=== PATIENT | male | born 1970 | race Caucasian/White ===

== ENCOUNTER 2023-06-18 20:12 | Emergency (ER) | payer OTHER, SELFPAY ==
[2023-06-18 20:16] VITALS: BP 134/82
[2023-06-18 20:30] LABS: % Basophils 0.2 % (0-2); % Eosinophils 1.3 % (0-6); % Immature Granulocytes 0.1 % (0-0.5); % Lymphocytes 21.9 % (20.5-51.1); % Monocytes 8.2 % (1.7-9.3); % Neutrophils 68.3 % (42.2-75.2); Absolute Eosinophils 0.1 10^3/uL (0-0.7); Absolute Lymphocytes 1.9 10^3/uL (1.2-3.4); Absolute Monocytes 0.7 10^3/uL (0.1-0.6); Absolute Neutrophils 5.8 10^3/uL (1.4-6.5); Hematocrit 38.8 % (39.0-52.0); Hemoglobin 13.5 g/dL (13.0-18.0); Mean Corp Hgb Conc. 34.8 g/dL (33.0-37.0); Mean Corpuscular Hgb 30.5 pg (27.0-31.0); Mean Corpuscular Volume 87.8 fL (80.0-94.0); Mean Platelet Volume 10.1 fL (7.4-10.4); Nucleated Red Blood Cells % 0 % (-); Platelet Count 183 10^3/uL (130-400); Red Blood Cell Count 4.42 10^6/uL (4.70-6.10); Red Cell Dist. Width 12.1 % (11.5-14.5); White Blood Cell Count 8.5 10^3/uL (4.8-10.8)
[2023-06-18 20:46] LABS: COVID-19 Antigen Negative (Negative)
[2023-06-18 20:48] LABS: ALT (SGPT) 19 U/L (0-50); AST (SGOT) 32 U/L (17-59); Albumin 4.6 g/dl (3.5-5.0); Alkaline Phosphatase 57 U/L (38-126); Blood Urea Nitrogen 14 mg/dl (9-20); Calcium 9.6 mg/dl (8.4-10.2); Carbon Dioxide 26 mmol/L (22-30); Chloride 105 mmol/L (98-107); Glucose 99 mg/dl (70-99); Potassium 3.9 mmol/L (3.5-5.1); Sodium 139 mmol/L (135-145); Total Bilirubin 0.6 mg/dl (0.2-1.3); Total Protein 7.8 g/dl (6.3-8.2); eGFR > 60.00
[2023-06-18 20:56] LABS: Troponin I < 0.012 ng/ml
--- NOTE | 2023-06-19 00:33 | ED.GENMED ---
History of Present Illness
General
Chief Complaint: Cold/Flu/URI Symptoms
Source: patient
Time Seen by Provider: 06/19/23 00:26
Travel History
Have you had any contact with someone who has COVID-19?: No
Do you have any symptoms of coronavirus? Fever > 100 degrees, chills, cough, shortness of breath, sore throat, loss of taste or smell, muscle aches, or headache?: No
History of Present Illness
History of Present Illness:
52-year-old male with past medical history of hyperlipidemia presenting to the emergency department for evaluation of sore throat, cough, sinus congestion, body aches, chills, lower back pain and chest discomfort. Patient states the chest
discomfort bothers him the most which is why he came to the ER for further evaluation. Patient denies any known fevers. No known sick contacts, recent travel or recent antibiotics. No other concerns at this time.
Past History
Past History
ED Past Medical History: Hypercholesterolemia
ED Past Surgical History: Other
Social History
Tobacco: Non-smoker
Alcohol: Occasional
Drug: None
Personal:
Living: with family
Review of Systems
Review of Systems
All Other Systems: ROS reviewed and negative except as documented in HPI and ROS
Phy Exam
Physical Exam
Physical Exam:
GENERAL: Alert , in no apparent distress
EYE: conjunctiva clear
NECK: Supple, no significant adenopathy.
ENT: o/p clr, mmm. No tonsillar edema or exudates, uvula midline and airway is patent
CARDIAC: Regular rate and rhythm
LUNGS: Clear breath sounds bilaterally, no acute respiratory distress, no wheezes/rales/rhonchi
NEUROLOGICAL: Alert and oriented
SKIN: Warm and dry, skin intact.
MUSCULOSKELETAL: well perfused.
PSYCH: Normal and appropriate interaction.
Scores
Heart Failure Risk
Heart Failure Risk Score: Not Applicable
Heart Score for Chest Pain Patients
STEMI patient?: Not applicable
Withdrawal Assessment of Alcohol
Withdrawal Assessment Completed?: Not applicable
Course
Orders/Labs/Results
Orders:
Orders
06/18/23 20:19
Electrocardiogram (*1) Urgent
Reason for Study: Chest Pain
EKG- Treatment ONCE
06/18/23 20:24
COVID-19 Antigen Urgent
Source: Nasal Swab
Complete Blood Count/With Diff Urgent
Comprehensive Metabolic Panel Urgent
Troponin I Urgent
Influenza A+B Rapid Molecular Urgent
HOPE Source: Nasal Swab
Specimen Description:
06/18/23 23:39
CR Chest - 2 Views Urgent
Comment:
Reason For Exam: cough, fever
Abnormal Lab Results
06/18/23
20:24
RBC 4.42 L 10^6/uL
(4.70-6.10)
Hct 38.8 L %
(39.0-52.0)
Absolute Monos (auto) 0.7 H 10^3/uL
(0.1-0.6)
06/18/23 20:24
06/18/23 20:24
Vital Signs
Initial and Last Documented VS:
Initial Vital Signs
Temp Pulse Resp BP Pulse Ox
100 F 80 16 134/82 100
06/18/23 20:16 06/18/23 20:16 06/18/23 20:16 06/18/23 20:16 06/18/23 20:16
Last Documented Vital Signs
Temp Pulse Resp BP Pulse Ox
100 F 88 19 114/82 97
06/18/23 20:16 06/19/23 00:39 06/19/23 00:39 06/19/23 00:39 06/19/23 00:39
MDM/Problems Addressed
Differential Diagnosis Includes:
COVID, flu, other viral etiology, pneumonia, strep throat
MDM/Problems Addressed:
52-year-old male present emergency department for evaluation of cold/flulike symptoms since Thursday. No known sick contacts, no recent antibiotics. Patient is hemodynamically stable. Labs, COVID and flu testing from triage are all unremarkable.
Chest x-ray is also without any evidence for pneumonia. Suspect viral URI to be most likely diagnosis. Advised [id number] measures. Patient aware of return precautions and will follow-up with primary care provider.
*Radiology
Radiology exam reviewed: preliminary read by ED provider (Unremarkable chest x-ray)
*Pulse Oximetry
Patient hypoxic: no
*Critical Care Note
Total Time (30-74mins, 75-104mins- exclusive of procedures): Not Applicable
ED Attending Note
-
Portions of this chart may have been created with voice recognition software.� Occasional wrong word or��sound alike� substitutions may have occurred due to the inherent limitations of voice recognition software.
Discharge Plan
Departure
Patient Disposition: Home (Routine Discharge)
Date of Disposition: 06/19/23
Time of Disposition: 00:33
Patient with high blood pressure during this ER visit?: No
Discharge Problem:
URI (upper respiratory infection)
Instructions: Viral Syndrome (DC)
Referrals:
Yohan Whitehead MD [Family Provider] -
Interventions
Interventions:
*Risk Screen - Suicide Last Done: 06/18/23 20:16
*General Assessment Last Done: 06/18/23 20:16
*Neglect/Abuse Screening Last Done: 06/18/23 20:16
ED- Fall Risk Assessment Last Done: 06/19/23 00:35
ED- Pulmonary Assessment Last Done: 06/19/23 00:35
Discharge Date and Time
Print Language: MAORI
[2023-06-19 00:39] VITALS: BP 114/82
== END 2023-06-19 00:46 | disposition home or self-care (01) ==
LOC: EMR 20:12
PROVIDERS: Emergency Medicine; EMERGENCY PHYSICIAN Student in an Organized Health Care Education/Training Program; FAMILY PHYSICIAN Internal Medicine
DX: J06.9 Acute upper respiratory infection, unspecified (principal); Z11.52 Encounter for screening for COVID-19
CPT/HCPCS: 99285; 71046; 80053; 84484; 85025; 87502; 87811; 93005

== ENCOUNTER → 2024-02-19 15:46 | Outpatient (REF) | payer OTHER, SELFPAY | LOC: HWRAD 15:46 | PROVIDERS: ATTENDING PHYSICIAN Student in an Organized Health Care Education/Training Program | DX: R20.2 Paresthesia of skin (principal) | CPT/HCPCS: 72072 ==

== ENCOUNTER → 2024-11-07 09:59 | Outpatient (REF) | payer OTHER, SELFPAY | LOC: RAD 09:59 | PROVIDERS: ATTENDING PHYSICIAN Otolaryngology; FAMILY PHYSICIAN Internal Medicine | DX: K21.9 Gastro-esophageal reflux disease without esophagitis (principal); R07.0 Pain in throat | CPT/HCPCS: 74221 ==